=== PATIENT | male | born 1955 ===

== ENCOUNTER 2017-11-27 17:55 | Emergency (ER) | payer BC ==
[2017-11-27 18:01] VITALS: BP 132/80; PULSE 79; RESP 18; TEMP 98.3; O2SAT 100; BMI 27.4
--- NOTE | 2017-11-27 19:15 | ED PDOC ---
Arrival/HPI - General Chief Complaint: Trauma Time Seen by Provider: 11/27/17 18:04 Historian: Patient - History of Present Illness Narrative History of Present Illness (Text): 11/27/17 19:10 A 61 year old male presents to the emergency department for evaluation after a mechanical fall prior to arrival. Patient reports he was cleaning his house and slipped on wet floor. He notes falling behind his couch hitting his nose and forehead on cement floor. Patient states his nose bleed for a few minutes but resolved spontaneously. Patient denies any other injuries, loss of consciousness , fever, chills, nausea, vomiting, abdominal pain, chest pain, shortness of breath, headache, dizziness or any other complaints. Time/Duration: Prior to Arrival Context: Home, Slipped Past Medical History - Provider Review Nursing Documentation Reviewed: Yes - Infectious Disease Hx of Infectious Diseases: None - Psychiatric Hx Substance Use: No - Anesthesia Hx Anesthesia: No Family/Social History - Physician Review Nursing Documentation Reviewed: Yes Family/Social History: No Known Family HX Smoking Status: Never Smoked Hx Alcohol Use: No Hx Substance Use: No Allergies/Home Meds Allergies/Adverse Reactions: Allergies No Known Allergies Allergy (Verified 11/27/17 18:12) Home Medications: Home Meds Medication Instructions Recorded Confirmed No Known Home Med 11/27/17 11/27/17 Review of Systems - Physician Review All systems were reviewed & negative as marked: Yes - Review of Systems Constitutional: absent: Fevers, Night Sweats Respiratory: absent: SOB Cardiovascular: absent: Chest Pain Gastrointestinal: absent: Abdominal Pain, Nausea, Vomiting Musculoskeletal: Other (pain to nose and forehead) Neurological: absent: Headache, Dizziness Physical Exam Vital Signs Reviewed: Yes Vital Signs Temp Pulse Resp BP Pulse Ox 11/27/17 18:00 98.3 F 79 18 132/80 100 Temperature: Afebrile Blood Pressure: Normal Pulse: Regular Respiratory Rate: Normal Appearance: Positive for: Well-Appearing, Non-Toxic, Comfortable Pain Distress: None Mental Status: Positive for: Alert and Oriented X 3 - Systems Exam Head: Present: Atraumatic, Normocephalic Pupils: Present: PERRL Extroacular Muscles: Present: EOMI Conjunctiva: Present: Normal Mouth: Present: Moist Mucous Membranes Nose (External): Present: Other (nose deformed towards the left) Nose (Internal): No: No Active Bleeding, Septal Hematoma Neck: Present: Normal Range of Motion Respiratory/Chest: Present: Clear to Auscultation, Good Air Exchange. No: Respiratory Distress, Accessory Muscle Use Cardiovascular: Present: Regular Rate and Rhythm, Normal S1, S2. No: Murmurs Abdomen: Present: Normal Bowel Sounds. No: Tenderness, Distention, Peritoneal Signs Back: Present: Normal Inspection Upper Extremity: Present: Normal Inspection. No: Cyanosis, Edema Lower Extremity: Present: Normal Inspection. No: Edema Neurological: Present: GCS=15, CN II-XII Intact, Speech Normal Skin: Present: Warm, Dry, Normal Color. No: Rashes Psychiatric: Present: Alert, Oriented x 3, Normal Insight, Normal Concentration Medical Decision Making ED Course and Treatment: 11/27/17 19:10 Impression: A 61 year old male with pain to nose and forehead after mechanical fall Plan: -- Head CT -- Maxillofacial CT -- Reassess and disposition Progress Notes: Report Date : 11/27/2017 19:34:00 Exam: CT Head Without Intravenous Contrast Dictated By: Franko Serrano MD IMPRESSION: No acute intracranial abnormality. Report Date : 11/27/2017 19:40:00 EXAM: CT Maxillofacial Without Intravenous Contrast Dictated By: Franko Serrano MD IMPRESSION: No acute facial bone fracture. - RAD Interpretation Radiology Orders: 11/27/17 18:19 HEAD W/O CONTRAST [CT] Stat MAXILLOFACIAL W/O CONTRAST [CT] Stat - PA / ALMOND BLANCHER OPERATOR / Resident Statement MD/DO has reviewed & agrees with the documentation as recorded. - Scribe Statement The provider has reviewed the documentation as recorded by the Marcelina Dong Provider Scribe Attestation: All medical record entries made by the Marcelina were at my direction and personally dictated by me. I have reviewed the chart and agree that the record accurately reflects my personal performance of the history, physical exam, medical decision making, and the department course for this patient. I have also personally directed, reviewed, and agree with the discharge instructions and disposition. Disposition/Present on Arrival - Present on Arrival Any Indicators Present on Arrival: No History of DVT/PE: No History of Uncontrolled Diabetes: No Urinary Catheter: No History of Decub. Ulcer: No History Surgical Site Infection Following: None - Disposition Have Diagnosis and Disposition been Completed?: Yes Diagnosis: Nasal contusion Disposition: HOME/ ROUTINE Disposition Time: 19:55 Patient Plan: Discharge Patient Problems: Current Active Problems Problem Status Onset Nasal contusion Acute Condition: GOOD Discharge Instructions (ExitCare): Contusion (DC) Additional Instructions: Mr Stephens- Do not eat or drink anything hot for the next three or four days. No Hot water to wash your face or in the shower. Your nose will start bleeding again. Tyelnol or Motrin should be enough for pain. An Ice pack will help with the swelling. You did not break your nose. Best- Dr. Ricci Franco Referrals: Daniel Nevarez DO [Primary Care Provider] - Follow up with primary Wiliam Amos DO [[facility]] - Follow up with primary Forms: [employer] ([place])
--- NOTE | 2017-11-27 19:34 | CT ---
EXAM: CT Head Without Intravenous Contrast CLINICAL HISTORY: 61 years old, male; Injury or trauma; Fall; Initial encounter; Blunt trauma (contusions or hematomas); Additional info: Trauma to nose/forhead TECHNIQUE: Axial computed tomography images of the head/brain without intravenous contrast. All CT scans at this facility use one or more dose reduction techniques, viz.: automated exposure control; ma/kV adjustment per patient size (including targeted exams where dose is matched to indication; i.e. head); or iterative reconstruction technique. Coronal and sagittal reformatted images were created and reviewed. COMPARISON: No relevant prior studies available. FINDINGS: Brain: Foci of hypodensity in the white matter consistent with chronic small vessel ischemic change. No intracranial mass, mass effect, or midline shift. No hemorrhage. Ventricles: Unremarkable. No ventriculomegaly. Bones/joints: Unremarkable. No acute fracture. Soft tissues: Unremarkable. Sinuses: Unremarkable as visualized. No acute sinusitis. Mastoid air cells: Unremarkable as visualized. No mastoid effusion. Nasopharynx: Opacification right and left nasal passage. IMPRESSION: No acute intracranial abnormality.
--- NOTE | 2017-11-27 19:40 | CT ---
EXAM: CT Maxillofacial Without Intravenous Contrast CLINICAL HISTORY: 61 years old, male; Injury or trauma; Fall; Initial encounter; Blunt trauma (contusions or hematomas); Forehead and nose; Additional info: Trauma to nose and forehead TECHNIQUE: Axial computed tomography images of the face without intravenous contrast. All CT scans at this facility use one or more dose reduction techniques, viz.: automated exposure control; ma/kV adjustment per patient size (including targeted exams where dose is matched to indication; i.e. head); or iterative reconstruction technique. Coronal and sagittal reformatted images were created and reviewed. COMPARISON: No relevant prior studies available. FINDINGS: Bones/joints: Cervical spinal degenerative changes, most severe at mid cervical levels. No acute fracture. Soft tissues: Paranasal soft tissue swelling. Orbits: Unremarkable. Sinuses: Unremarkable. No air-fluid levels. Nasopharynx: Opacification right and left nasal passages. IMPRESSION: No acute facial bone fracture.
== END 2017-11-27 20:14 | disposition home or self-care (01) ==
LOC: ED 17:55
DX: S00.33XA Contusion of nose, initial encounter (principal); W01.0XXA Fall on same level from slipping, tripping and stumbling without subsequent striking against object, initial encounter; Y92.009 Unspecified place in unspecified non-institutional (private) residence as the place of occurrence of the external cause